=== PATIENT | male | born 1945 | race Caucasian/White ===

== ENCOUNTER 2017-05-08 20:49 | Emergency (ER) | payer OTHER ==
[~2017-05-08] VITALS: Ht 162.6 cm; Wt 99.8 kg
[2017-05-08 20:57] VITALS: BP_SYST 113
--- NOTE | 2017-05-08 21:03 | NUR ---
Patient to ED bed 3 to await MD evaluation, s/p fall from ladder last night. Patient reports waking up with double vision on the left and a headache 5/10. Patient placed on air sampling and monitoring, BP and pulse ox
--- NOTE | 2017-05-08 21:04 | NUR ---
Patient c/o headache and double vision to left eye s/p fall from ladder last night. NO LOC, no neck or back pain. Patient placed on engine monitor-showing sinus rhythm/sinus tachycardia without ectopy. Awaiting evaluation by ER MD, will continue to observe and assess. Patient able to ambulate without difficulty from wheelchair to gurney.
--- NOTE | 2017-05-08 21:20 | NUR ---
Dr Orozco at bedside to evaluate patient.
--- NOTE | 2017-05-08 21:29 | NUR ---
Patient to CT SCAN in stable condition
--- NOTE | 2017-05-08 21:47 | NUR ---
Patient returned from CT scan in stable condition, placed back on quality assurance monitor final. Ice pack provided for patient comfort. Patient provided with water to drink for c/o thirst. Assessment remains unchanged
--- NOTE | 2017-05-08 22:20 | NUR ---
Visual acuity done and reported to Dr Orozco. No additional orders received.
--- NOTE | 2017-05-08 22:40 | NUR ---
# 18 gauge angiocath placed to R wrist. Use of asceptic technique. Opsite placed over site. Blood return noted. Blood for lab drawn from site. Flushed with 10 cc of normal saline. No evidence of infiltration noted. Patient tolerated well.
[2017-05-08 22:52] LABS: BASOPHILS # (AUTO) 0.1 K/uL (0.0-0.2); BASOPHILS % (AUTO) 1.4 % (0.0-2.0); EOSINOPHILS # (AUTO) 0.2 K/uL (0.0-0.4); EOSINOPHILS % (AUTO) 2.5 % (0.0-4.0); HEMATOCRIT 40.3 % (36-54); HEMOGLOBIN 13.4 g/dL (14.0-18.0); LYMPHOCYTES # (AUTO) 1.9 K/uL (1.0-5.5); LYMPHOCYTES % (AUTO) 24.3 % (20.5-51.5); MEAN CORPUSCULAR HEMOGLOBIN 29 pg (27-31); MEAN CORPUSCULAR HGB CONC 33 % (32-36); MEAN CORPUSCULAR VOLUME 87 fL (79.0-98.0); MONOCYTES # (AUTO) 0.6 K/uL (0.0-1.0); MONOCYTES % (AUTO) 7.6 % (1.7-9.3); NEUTROPHILS # (AUTO) 5.2 K/uL (1.8-7.7); NEUTROPHILS % (AUTO) 64.2 % (40.0-70.0); PLATELET COUNT (AUTO) 164 K/uL (130-430); RED BLOOD CELL COUNT(AUTO) 4.65 MIL/uL (4.2-6.2); RED CELL DISTRIBUTION WIDTH 13.5 % (9.0-15.0)
--- NOTE | 2017-05-08 23:00 | NUR ---
Dr Orozco at bedside speaking with patient/family regarding plan of care.
[2017-05-08 23:01] LABS: ANION GAP 6 (5-15); CHLORIDE 102 mmol/L (98-107); POTASSIUM 3.9 mmol/L (3.5-5.1); SODIUM SERUM 137 mmol/L (136-145)
[2017-05-08 23:02] LABS: CALCIUM 8.9 mg/dL (8.4-11.0); CREATININE 0.89 mg/dL (0.55-1.30); GLUCOSE 273 mg/dL (70-99); UREA NITROGEN, BLOOD 17 mg/dL (8-21)
[2017-05-08 23:06] LABS: ALANINE AMINOTRANSFERASE 28 U/L (12-78); ALBUMIN 3.5 g/dL (3.4-4.8); ASPARTATE AMINOTRANSFERASE 12 U/L (10-37); TOTAL BILIRUBIN 0.3 mg/dL (0.0-1.0); TOTAL PROTEIN, SERUM 7.6 g/dL (6.4-8.3)
[2017-05-08 23:42] LABS: ERYTHROCYTE SEDIMENTATION RATE 15 MM/HR (0-15)
--- NOTE | 2017-05-09 01:00 | NUR ---
Patient resting quietly in nad, able to ambulate to bathroom with slow, steady gait.
[2017-05-09 01:01] VITALS: BP_SYST 140
--- NOTE | 2017-05-09 01:19 | NUR ---
Patient given written and verbal discharge instructions and verbalizes understanding. ER MD discussed with patient the results and treatment provided. Patient in stable condition. ID arm band removed. IV catheter removed intact and dressing applied, no active bleeding. No RX given. Patient educated on pain management and to follow up with PMD. Pain Scale 0. Opportunity for questions provided and answered.
== END 2017-05-09 01:10 | disposition home or self-care (01) ==
LOC: SED 20:49
DX: H53.8 Other visual disturbances (principal); Z96.659 Presence of unspecified artificial knee joint
CPT/HCPCS: 36415; 70450-TC; 71010; 72125-TC; 80053; 84484; 85025; 85651-TC; 93005; 99285

== ENCOUNTER 2017-07-13 11:09 | Emergency (ER) | payer OTHER ==
[~2017-07-13] VITALS: Ht 180.3 cm; Wt 112.9 kg
[2017-07-13 11:13] VITALS: BP_SYST 146
[2017-07-13] MEDS ORDERED: LIDOCAINE MPF 1% 50 MG/5 ML AMP INJ ONE (11:30)
[2017-07-13] MEDS ORDERED: OXYCODONE/ACETAMINOPHEN 5-325 TABLET PO ONE (11:30)
== END 2017-07-13 14:15 | disposition home or self-care (01) ==
LOC: SED 11:09
DX: S63.290A Dislocation of distal interphalangeal joint of right index finger, initial encounter (principal); S00.83XA Contusion of other part of head, initial encounter; S61.210A Laceration without foreign body of right index finger without damage to nail, initial encounter; E11.9 Type 2 diabetes mellitus without complications; Z90.89 Acquired absence of other organs; Z90.49 Acquired absence of other specified parts of digestive tract; W01.0XXA Fall on same level from slipping, tripping and stumbling without subsequent striking against object, initial encounter; Y93.01 Activity, walking, marching and hiking; Y92.411 Interstate highway as the place of occurrence of the external cause; Y99.8 Other external cause status
CPT/HCPCS: 12001; 26770; 73030; 73140; 99284; J2001

== ENCOUNTER 2018-05-30 15:39 | Inpatient (IN) | payer OTHER ==
[~2018-05-30] VITALS: Ht 182.9 cm; Wt 116.6 kg
[2018-05-30] MEDS ORDERED: NACL 0.9% 1,000 ML IV ONE ×3 (15:47→16:45)
[2018-05-30 15:52] VITALS: BP_SYST 132
[2018-05-30] MEDS ORDERED: ASPIRIN 81 MG TAB.CHEW PO ONE (16:00)
[2018-05-30] MEDS ORDERED: ONDANSETRON HCL 4 MG/2 ML VIAL IVP ONE (16:00)
[2018-05-30] MEDS ORDERED: MORPHINE 4 MG/ML INJ. SYRINGE IVP ONE (16:00)
[2018-05-30 16:12] LABS: BASOPHILS % (AUTO) 0.2 % (0.0-2.0); HEMATOCRIT 42.5 % (36-54); HEMOGLOBIN 14.5 g/dL (14.0-18.0); LYMPHOCYTES # (AUTO) 0.4 K/uL (1.0-5.5); MEAN CORPUSCULAR HEMOGLOBIN 31 pg (27-31); MEAN CORPUSCULAR HGB CONC 34 % (32-36); MEAN CORPUSCULAR VOLUME 90 fL (79.0-98.0); MONOCYTES # (AUTO) 0.3 K/uL (0.0-1.0); MONOCYTES % (AUTO) 3.6 % (1.7-9.3); NEUTROPHILS # (AUTO) 6.5 K/uL (1.8-7.7); NEUTROPHILS % (AUTO) 91.2 % (40.0-70.0); PLATELET COUNT (AUTO) 135 K/uL (130-430); RED BLOOD CELL COUNT(AUTO) 4.75 MIL/uL (4.2-6.2); RED CELL DISTRIBUTION WIDTH 13.3 % (9.0-15.0); WHITE BLOOD COUNT (AUTO) 7.2 K/uL (4.8-10.8)
[2018-05-30] MEDS ORDERED: LIP40 PO (16:15)
[2018-05-30] MEDS ORDERED: METF-796 PO (16:15)
[2018-05-30] MEDS ORDERED: SERT50TA12 PO (16:15)
[2018-05-30] MEDS ORDERED: GLIP-214 PO (16:15)
[2018-05-30] MEDS ORDERED: LEVO100T9 PO (16:15)
[2018-05-30] MEDS ORDERED: SITA100T11 PO (16:15)
[2018-05-30 16:30] LABS: INR 1.1 (0.80-1.20); PROTHROMBIN TIME 10.7 SECS (9.5-12.5)
[2018-05-30 16:31] LABS: ALANINE AMINOTRANSFERASE 30 U/L (12-78); ALBUMIN 3.5 g/dL (3.4-4.8); AMYLASE 14 U/L (0-100); ANION GAP 14 (5-15); ASPARTATE AMINOTRANSFERASE 12 U/L (10-37); CALCIUM 8.9 mg/dL (8.4-11.0); CHLORIDE 102 mmol/L (98-107); CREATININE 1.12 mg/dL (0.55-1.30); GLUCOSE 290 mg/dL (70-99); LIPASE 93 U/L (73-393); POTASSIUM 3.8 mmol/L (3.5-5.1); SODIUM SERUM 135 mmol/L (136-145); TOTAL BILIRUBIN 0.6 mg/dL (0.0-1.0); UREA NITROGEN, BLOOD 14 mg/dL (8-21)
[2018-05-30] MEDS ORDERED: cefTRIAXone 1 GM IVPB PREMIX 50 ML IV ONE (16:45)
[2018-05-30 17:33] LABS: BILIRUBIN,URINE NEGATIVE (NEGATIVE); BLOOD, URINE NEGATIVE (NEGATIVE); CLARITY/URINE SL HAZY (CLEAR); COLOR,URINE YELLOW (YELLOW); GLUCOSE,URINE 3+ (NEGATIVE); KETONES,URINE NEGATIVE (NEGATIVE); LEUKOCYTE ESTERASE ,URINE NEGATIVE (NEGATIVE); NITRITE, URINE NEGATIVE (NEGATIVE); PH,URINE 5.5 (5.0-8.0); PROTEIN URINE 1+ (NEGATIVE); UROBILINOGEN,URINE 0.2 (0.2-1.0)
[2018-05-30] MEDS ORDERED: NACL 0.9% 1,000 ML IV SCH (17:33)
[2018-05-30 17:42] LABS: BACTERIA,URINE RARE /HPF (None Seen); MUCUS,URINE 1+ /LPF (None Seen); RBC,URINE 0-3 /HPF (0-3); WBC,URINE 0-3 /HPF (0-3)
[2018-05-30] MEDS ORDERED: DEXTROSE 50% JECT 50 ML DISP.SYRIN IVP PRN ×2 (17:45→21:00)
[2018-05-30] MEDS ORDERED: ONDANSETRON HCL 4 MG/2 ML VIAL IVP PRN (17:45)
[2018-05-30] MEDS ORDERED: ACETAMINOPHEN 325 MG TABLET PO PRN ×2 (17:45→21:30)
[2018-05-30 18:01] VITALS: BP_SYST 137
[2018-05-30] MEDS ORDERED: LEVOFLOXACIN 500 MG/D5W 100 ML IV ONE ×2 (19:00→20:29)
[2018-05-30 19:40] VITALS: BP_SYST 116
[2018-05-30] MEDS: INSULIN REGULAR, HUMAN 100 UNITS/ML, 10 ML VIAL (novoLIN R) SUBCUT PRN (20:43)
[2018-05-30] MEDS: NACL 0.9% 1,000 ML IV SCH (21:00)
[2018-05-30] MEDS: glipiZIDE XL 5 MG TAB ( GLUCOTROL XL) PO SCH (21:00)
[2018-05-30] MEDS ORDERED: INSULIN REGULAR, HUMAN 100 UNITS/ML, 10 ML VIAL (novoLIN R) SUBCUT PRN (21:00)
[2018-05-30] MEDS ORDERED: IPRATROPIUM/ALBUTEROL SULFATE 3 ML AMPUL.NEB INH PRN (21:15)
[2018-05-30] MEDS ORDERED: ACETAMINOPHEN/CODEINE 300 MG-30 MG TABLET PO PRN (21:30)
[2018-05-30 21:46] VITALS: BP_SYST 137
[2018-05-30] MEDS ORDERED: metroNIDAZOLE 500 MG TABLET PO SCH (23:00)
[2018-05-31 00:09] VITALS: BP_SYST 104
[2018-05-31] MEDS: NACL 0.9% 1,000 ML IV SCH ×2 (06:43→17:50)
[2018-05-31] MEDS: metroNIDAZOLE 500 MG TABLET PO SCH ×3 (06:43→21:29)
[2018-05-31] MEDS: LEVOTHYROXINE SODIUM 0.1 MG TABLET PO SCH (06:43)
[2018-05-31] MEDS: INSULIN REGULAR, HUMAN 100 UNITS/ML, 10 ML VIAL (novoLIN R) SUBCUT PRN ×3 (06:53→17:27)
[2018-05-31] MEDS: IPRATROPIUM/ALBUTEROL SULFATE 3 ML AMPUL.NEB INH SCH ×4 (07:22→18:00)
[2018-05-31 07:26] LABS: BASOPHILS % (AUTO) 0.1 % (0.0-2.0); EOSINOPHILS % (AUTO) 0.1 % (0.0-4.0); HEMATOCRIT 37.8 % (36-54); HEMOGLOBIN 13.1 g/dL (14.0-18.0); LYMPHOCYTES # (AUTO) 0.9 K/uL (1.0-5.5); LYMPHOCYTES % (AUTO) 16.8 % (20.5-51.5); MEAN CORPUSCULAR HEMOGLOBIN 30 pg (27-31); MEAN CORPUSCULAR HGB CONC 35 % (32-36); MEAN CORPUSCULAR VOLUME 87 fL (79.0-98.0); MONOCYTES # (AUTO) 0.3 K/uL (0.0-1.0); MONOCYTES % (AUTO) 6.3 % (1.7-9.3); NEUTROPHILS # (AUTO) 3.9 K/uL (1.8-7.7); NEUTROPHILS % (AUTO) 76.7 % (40.0-70.0); PLATELET COUNT (AUTO) 107 K/uL (130-430); RED BLOOD CELL COUNT(AUTO) 4.35 MIL/uL (4.2-6.2); RED CELL DISTRIBUTION WIDTH 13.3 % (9.0-15.0); WHITE BLOOD COUNT (AUTO) 5.1 K/uL (4.8-10.8)
[2018-05-31 07:54] LABS: ANION GAP 8 (5-15); CHLORIDE 102 mmol/L (98-107); CREATININE 0.54 mg/dL (0.55-1.30); GLUCOSE 168 mg/dL (70-99); POTASSIUM 3.3 mmol/L (3.5-5.1); SODIUM SERUM 134 mmol/L (136-145); UREA NITROGEN, BLOOD 9 mg/dL (8-21)
[2018-05-31 07:55] LABS: ALANINE AMINOTRANSFERASE 27 U/L (12-78); ALBUMIN 2.9 g/dL (3.4-4.8); ASPARTATE AMINOTRANSFERASE 13 U/L (10-37); CHOLESTEROL 124 mg/dL (<200); HDL CHOLESTEROL 35 mg/dL (>45); LDL CHOLESTEROL 72 mg/dL (<100); TOTAL BILIRUBIN 0.5 mg/dL (0.0-1.0); TRIGLYCERIDES 117 mg/dL (30-150)
[2018-05-31 08:00] VITALS: BP_SYST 127
[2018-05-31] MEDS: CIPROFLOXACIN HCL 500 MG TABLET PO SCH ×2 (09:46→21:29)
[2018-05-31] MEDS: ATORVASTATIN 20 MG TABLET PO SCH (09:46)
[2018-05-31] MEDS: glipiZIDE XL 5 MG TAB ( GLUCOTROL XL) PO SCH ×2 (09:46→21:19)
[2018-05-31] MEDS: SERTRALINE HCL 50 MG TABLET PO SCH (09:46)
[2018-05-31 12:44] VITALS: BP_SYST 117
[2018-05-31 16:00] VITALS: BP_SYST 122
[2018-05-31] MEDS ORDERED: POTASSIUM CHLORIDE 20 MEQ TAB.PRT.SR PO ONE (16:45)
[2018-05-31 20:00] VITALS: BP_SYST 132
[2018-05-31] MEDS: cefTRIAXone 1 GM in D5W 50 ML IV SCH (21:12)
[2018-05-31] MEDS: traMADol HCL HCL 50 MG TABLET (ULTRAM) PO PRN (21:30)
[2018-06-01 04:45] VITALS: BP_SYST 134
[2018-06-01] MEDS: IPRATROPIUM/ALBUTEROL SULFATE 3 ML AMPUL.NEB INH SCH ×3 (06:00→19:58)
[2018-06-01] MEDS: LEVOTHYROXINE SODIUM 0.1 MG TABLET PO SCH (06:19)
[2018-06-01] MEDS: metroNIDAZOLE 500 MG TABLET PO SCH ×3 (06:20→21:08)
[2018-06-01] MEDS: NACL 0.9% 1,000 ML IV SCH ×2 (06:20→14:25)
[2018-06-01] MEDS: INSULIN REGULAR, HUMAN 100 UNITS/ML, 10 ML VIAL (novoLIN R) SUBCUT PRN ×4 (06:29→21:18)
[2018-06-01] MEDS: ATORVASTATIN 20 MG TABLET PO SCH (08:36)
[2018-06-01] MEDS: SERTRALINE HCL 50 MG TABLET PO SCH (08:36)
[2018-06-01] MEDS: CIPROFLOXACIN HCL 500 MG TABLET PO SCH ×2 (10:14→21:07)
[2018-06-01] MEDS: glipiZIDE XL 5 MG TAB ( GLUCOTROL XL) PO SCH ×2 (10:44→21:07)
[2018-06-01 12:00] VITALS: BP_SYST 139
[2018-06-01 16:18] VITALS: BP_SYST 132
[2018-06-01 20:24] VITALS: BP_SYST 123
[2018-06-01] MEDS: traMADol HCL HCL 50 MG TABLET (ULTRAM) PO PRN (21:08)
[2018-06-01] MEDS: cefTRIAXone 1 GM in D5W 50 ML IV SCH (21:08)
[2018-06-02 00:07] VITALS: BP_SYST 121
[2018-06-02] MEDS: metroNIDAZOLE 500 MG TABLET PO SCH (06:35)
[2018-06-02] MEDS: LEVOTHYROXINE SODIUM 0.1 MG TABLET PO SCH (06:35)
[2018-06-02] MEDS: INSULIN REGULAR, HUMAN 100 UNITS/ML, 10 ML VIAL (novoLIN R) SUBCUT PRN ×2 (06:39→12:12)
[2018-06-02 07:17] LABS: BASOPHILS % (AUTO) 0.7 % (0.0-2.0); EOSINOPHILS # (AUTO) 0.1 K/uL (0.0-0.4); EOSINOPHILS % (AUTO) 3.4 % (0.0-4.0); HEMATOCRIT 39.1 % (36-54); HEMOGLOBIN 13.2 g/dL (14.0-18.0); LYMPHOCYTES # (AUTO) 1.2 K/uL (1.0-5.5); LYMPHOCYTES % (AUTO) 33.1 % (20.5-51.5); MEAN CORPUSCULAR HEMOGLOBIN 30 pg (27-31); MEAN CORPUSCULAR HGB CONC 34 % (32-36); MEAN CORPUSCULAR VOLUME 88 fL (79.0-98.0); MONOCYTES # (AUTO) 0.4 K/uL (0.0-1.0); MONOCYTES % (AUTO) 10.3 % (1.7-9.3); NEUTROPHILS # (AUTO) 1.9 K/uL (1.8-7.7); NEUTROPHILS % (AUTO) 52.5 % (40.0-70.0); PLATELET COUNT (AUTO) 119 K/uL (130-430); RED BLOOD CELL COUNT(AUTO) 4.42 MIL/uL (4.2-6.2); RED CELL DISTRIBUTION WIDTH 13.3 % (9.0-15.0)
[2018-06-02 07:26] LABS: WHITE BLOOD COUNT (AUTO) 3.6 K/uL (4.8-10.8)
[2018-06-02 07:28] LABS: ANION GAP 6 (5-15); CALCIUM 8.7 mg/dL (8.4-11.0); CHLORIDE 105 mmol/L (98-107); CREATININE 0.61 mg/dL (0.55-1.30); GLUCOSE 161 mg/dL (70-99); POTASSIUM 3.5 mmol/L (3.5-5.1); SODIUM SERUM 137 mmol/L (136-145); UREA NITROGEN, BLOOD 8 mg/dL (8-21)
[2018-06-02] MEDS: IPRATROPIUM/ALBUTEROL SULFATE 3 ML AMPUL.NEB INH SCH (07:39)
[2018-06-02 08:25] VITALS: BP_SYST 145
[2018-06-02] MEDS: ATORVASTATIN 20 MG TABLET PO SCH (08:49)
[2018-06-02] MEDS: glipiZIDE XL 5 MG TAB ( GLUCOTROL XL) PO SCH (08:49)
[2018-06-02] MEDS: SERTRALINE HCL 50 MG TABLET PO SCH (08:49)
[2018-06-02] MEDS: CIPROFLOXACIN HCL 500 MG TABLET PO SCH (09:24)
[2018-06-02 11:41] VITALS: BP_SYST 112
[2018-06-02 12:00] VITALS: BP_SYST 122
[2018-06-02 13:05] VITALS: BP_SYST 122
== END 2018-06-02 12:51 | DRG 872 ==
LOC: SED 15:39 → STU 17:33 → SMU 06-01 21:57
PROVIDERS: ADMIT Internal Medicine; ATTEND Internal Medicine
PROC: 5A09357 Assistance with Respiratory Ventilation, Less than 24 Consecutive Hours, Continuous Positive Airway Pressure (ICD-10-PCS; principal; 2018-05-30)
PROC: 5A09357 Assistance with Respiratory Ventilation, Less than 24 Consecutive Hours, Continuous Positive Airway Pressure (ICD-10-PCS; 2018-05-31)
DX: A41.9 Sepsis, unspecified organism (principal); G61.0 Guillain-Barre syndrome; J44.1 Chronic obstructive pulmonary disease with (acute) exacerbation; E78.00 Pure hypercholesterolemia, unspecified; E03.9 Hypothyroidism, unspecified; E11.65 Type 2 diabetes mellitus with hyperglycemia; E11.42 Type 2 diabetes mellitus with diabetic polyneuropathy; I10 Essential (primary) hypertension; F17.200 Nicotine dependence, unspecified, uncomplicated; K52.9 Noninfective gastroenteritis and colitis, unspecified; E66.9 Obesity, unspecified; Z68.34 Body mass index [BMI] 34.0-34.9, adult; Z79.899 Other long term (current) drug therapy; Z79.84 Long term (current) use of oral hypoglycemic drugs; Z89.021 Acquired absence of right finger(s)
CPT/HCPCS: 36415; 70551; 71045; 80048; 80053; 80061; 81000-TC; 82150-TC; 82550-TC; 82962; 83605; 83690-TC; 83880; 84443-TC; 84484; 85025; 85610-TC; 85730-TC; 87040-TC; 93005; 93880; 94640; 94660; 94760; 96361; 96374; 96375; 97110-GP; 97116-GP; 97530-GP; 99285; J0696; J1815; J1956; J2270; J2405; J7030; J7060; J7620